=== PATIENT | male | born 1960 | race Hispanic/Latino ===

== ENCOUNTER 2018-06-23 06:23 | Day surgery (SDC) | payer OTHER, MEDICAID ==
[2018-06-22 15:12] VITALS: BP 133/75
[2018-06-22 15:17] LABS: BASOPHILS % (AUTO) 0.9 % (0.0-5.0); EOSINOPHILS % (AUTO) 1.9 % (0.0-8.0); HEMATOCRIT 41.9 % (42-54); LYMPHOCYTES % (AUTO) 21.1 % (21.0-51.0); MEAN CORPUSCULAR HEMOGLOBIN 33.2 pg (27.0-33.0); MONOCYTES % (AUTO) 5.6 % (3.0-13.0); NEUTROPHILS % (AUTO) 70.5 % (40.0-77.0); NUCLEATED RED BLOOD CELLS 0.1 % (0.0-0.19); PLATELET COUNT (AUTO) 66 K/uL (130-400); RED BLOOD CELL COUNT(AUTO) 4.41 MIL/uL (4.50-6.20); RED CELL DISTRIBUTION WIDTH 15.7 % (11.0-15.5); WHITE BLOOD COUNT (AUTO) 4.3 K/uL (4.8-10.8)
[2018-06-22 15:26] LABS: CREATININE 0.9 mg/dL (0.5-1.5); POTASSIUM 4.3 mmol/L (3.5-5.1)
[2018-06-22 15:43] LABS: PLATELET MORPHOLOGY COMMENT DECREASED
[2018-06-22] MEDS: CEFAZOLIN SODIUM 1 GM VIAL IVP SCH (16:00)
[2018-06-23] VITALS (13 sets, daily range): BP systolic 88–154; BP diastolic 46–86
[~2018-06-23] VITALS: Ht 181.6 cm; Wt 97.4 kg
[~2018-06-23 06:23] MED LIST: HYDR-4068 PO; LACT10SO9 PO; LISI40TA4 PO; METF-444 PO; POTA20TA82 PO; PRAV10TA39 PO; SPIR25TA PO
[2018-06-23] MEDS ORDERED: SODIUM CHLORIDE 0.9% 1000ML 1,000 ML IV ONE (06:45)
[2018-06-23] MEDS ORDERED: LIDOCAINE PF 2% 5ML ABBOJECT ONE (07:46)
[2018-06-23] MEDS ORDERED: ONDANSETRON HCL 4 MG/2 ML VIAL ONE (07:46)
[2018-06-23] MEDS ORDERED: DEXAMETHASONE SOD PHOSPHATE 10MG/ML 1ML VIAL ONE (07:46)
[2018-06-23] MEDS ORDERED: FENTANYL CITRATE PF 50 MCG/1 ML 2ML VIAL ONE ×3 (07:47→08:52)
[2018-06-23] MEDS ORDERED: PROPOFOL 10 MG/ML 20ML VIAL IV ONE (07:47)
[2018-06-23] MEDS ORDERED: MIDAZOLAM HCL 1 MG/ML 2ML VIAL ONE (07:47)
[2018-06-23] MEDS: CEFAZOLIN SODIUM 1 GM VIAL IVP SCH (08:30)
[2018-06-23] MEDS ORDERED: CEPH500B PO (09:24)
[2018-06-23] MEDS ORDERED: HYDR-4453 PO (09:24)
[2018-06-23] MEDS ORDERED: KETOROLAC TROMETHAMINE 30MG/ML ONE (09:57)
[2018-06-23] MEDS ORDERED: HYDROCODONE/ACETAMINOPHEN 10/325 MG TAB PO SCH (11:06)
== END 2018-06-23 11:35 | disposition home or self-care (01) ==
LOC: DAH 06:23
PROVIDERS: ATTEND Orthopaedic Surgery
DX: M25.562 Pain in left knee (principal); G89.29 Other chronic pain; M67.52 Plica syndrome, left knee; E11.9 Type 2 diabetes mellitus without complications; I10 Essential (primary) hypertension; K72.90 Hepatic failure, unspecified without coma; B18.2 Chronic viral hepatitis C; K74.60 Unspecified cirrhosis of liver; Z86.73 Personal history of transient ischemic attack (TIA), and cerebral infarction without residual deficits; E78.5 Hyperlipidemia, unspecified; D64.9 Anemia, unspecified; Z98.890 Other specified postprocedural states; Z79.899 Other long term (current) drug therapy; Z83.3 Family history of diabetes mellitus; Z82.49 Family history of ischemic heart disease and other diseases of the circulatory system; D64.89 Other specified anemias
CPT/HCPCS: 29870; 36415; 80048; 82948 ×2; 85025; A4606; A4649 ×2; A4930; A6223; J0690; J1100; J1885; J2001; J2250; J2405; J2704; J3010 ×3; J7030 ×2; A4218

== ENCOUNTER → 2019-04-25 | Outpatient (CLI) | payer MEDICAID ==
[~2019-04-25] MED LIST changes: +CEPH500B PO; -HYDR-4068 PO; +HYDR-4453 PO
== END | disposition home or self-care (01) ==
LOC: RAH 08:24
PROVIDERS: ATTEND Internal Medicine Gastroenterology
DX: K74.60 Unspecified cirrhosis of liver (principal); R16.1 Splenomegaly, not elsewhere classified; Z90.49 Acquired absence of other specified parts of digestive tract
CPT/HCPCS: 76700; 93975

== ENCOUNTER 2019-10-18 16:05 | Observation (INO) | payer MEDICAID ==
[~2019-10-18] VITALS: Ht 180.3 cm; Wt 97.5 kg
[2019-10-18 16:50] VITALS: BP 143/90
[2019-10-18] MEDS ORDERED: 1/2 NORMAL SALINE 1,000 ML IV SCH (17:15)
[2019-10-18] MEDS ORDERED: ALBUTEROL SULFATE 0.083% 2.5 MG/3 ML INH IH PRN (17:30)
[2019-10-18] MEDS ORDERED: GUAIFENESIN-DM 200/20 MG 10 ML PO PRN (17:30)
[2019-10-18] MEDS ORDERED: GLIP5TAB11 PO (17:30)
[2019-10-18] MEDS ORDERED: OMEP40CA13 PO (17:30)
[2019-10-18] MEDS ORDERED: GABA-531 PO (17:30)
[2019-10-18] MEDS ORDERED: ACETAMINOPHEN 325 MG TAB PO PRN (17:30)
[2019-10-18] MEDS ORDERED: POTA25TA35 PO (17:30)
[2019-10-18] MEDS ORDERED: ONDANSETRON HCL 4 MG/2 ML VIAL IVP PRN (17:30)
[2019-10-18] MEDS ORDERED: LACTULOSE 20 GM/30 ML UDCUP PO PRN (17:30)
[2019-10-18] MEDS ORDERED: BACL10TA PO (17:30)
[2019-10-18] MEDS: IPRATROPIUM/ALBUTEROL SULFATE 3 ML SOLUTION IH SCH ×2 (17:32→23:52)
[2019-10-18 17:50] LABS: BASOPHILS % (AUTO) 0.3 % (0.0-5.0); EOSINOPHILS % (AUTO) 0.3 % (0.0-8.0); HEMATOCRIT 33.3 % (42-54); LYMPHOCYTES % (AUTO) 11.2 % (21.0-51.0); MEAN CORPUSCULAR VOLUME 90.7 fL (79-99); MONOCYTES % (AUTO) 9.8 % (3.0-13.0); NEUTROPHILS % (AUTO) 78.1 % (40.0-77.0); PLATELET COUNT (AUTO) 54 K/uL (130-400); RED BLOOD CELL COUNT(AUTO) 3.67 MIL/uL (4.50-6.20); RED CELL DISTRIBUTION WIDTH 14.4 % (11.0-15.5); WHITE BLOOD COUNT (AUTO) 3.5 K/uL (4.8-10.8)
[2019-10-18 18:03] LABS: ALBUMIN 2.9 g/dL (3.5-5.0); BILIRUBIN,DIRECT 0.3 mg/dL (0.0-0.3); BILIRUBIN,TOTAL 0.8 mg/dL (0.2-1.0); TOTAL PROTEIN, SERUM 7.6 g/dL (6.0-8.3)
[2019-10-18] MEDS: CEFUROXIME SODIUM 1.5 GM VIAL IVP SCH (18:13)
[2019-10-18] MEDS: METHYLPREDNISOLONE SOD SUCC 125MG/2ML VIAL IVP SCH (18:13)
[2019-10-18 18:44] LABS: B-TYPE NATRIURETIC PEPTIDE 60 pg/mL (0-100)
[2019-10-18 19:00] VITALS: BP 112/82
--- NOTE | 2019-10-18 20:00 | NUR ---
dr. 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 1 as directed on med orders
[2019-10-18] MEDS ORDERED: OSELTAMIVIR PHOSPHATE 75 MG CAP PO SCH (21:00)
[2019-10-19] VITALS: BP 126/70
[2019-10-19 04:00] VITALS: BP 112/68
[2019-10-19 05:21] LABS: HEMATOCRIT 30.5 % (42-54); LYMPHOCYTES % (AUTO) 24.1 % (21.0-51.0); MEAN CORPUSCULAR HEMOGLOBIN 30.3 pg (27.0-33.0); MEAN CORPUSCULAR HGB CONC 33.4 g/dL (32.0-36.0); MEAN CORPUSCULAR VOLUME 90.5 fL (79-99); MONOCYTES % (AUTO) 7.1 % (3.0-13.0); NEUTROPHILS % (AUTO) 68.8 % (40.0-77.0); PLATELET COUNT (AUTO) 47 K/uL (130-400); RED BLOOD CELL COUNT(AUTO) 3.37 MIL/uL (4.50-6.20); RED CELL DISTRIBUTION WIDTH 14.4 % (11.0-15.5); WHITE BLOOD COUNT (AUTO) 1.4 K/uL (4.8-10.8)
[2019-10-19] MEDS: METHYLPREDNISOLONE SOD SUCC 125MG/2ML VIAL IVP SCH (05:50)
[2019-10-19] MEDS: CEFUROXIME SODIUM 1.5 GM VIAL IVP SCH (05:50)
--- NOTE | 2019-10-19 06:00 | NUR ---
DR. BABIN STATED TO RESUME PT'S HOME MEDS EXCEPT DIABETES MEDICATIONS
--- NOTE | 2019-10-19 06:00 | NUR ---
DR. BABIN AWARE OF PTS VITAL SIGNS AND OF FEVER LAST NIGHT NO NEW ORDERS REGARDING THE FEVER
[2019-10-19] MEDS ORDERED: CEFUROXIME SODIUM 1.5 GM VIAL ONE (06:01)
[2019-10-19 06:02] LABS: ALBUMIN 2.5 g/dL (3.5-5.0); BILIRUBIN,DIRECT 0.2 mg/dL (0.0-0.3); BILIRUBIN,TOTAL 0.5 mg/dL (0.2-1.0); POTASSIUM 4.2 mmol/L (3.5-5.1); TOTAL PROTEIN, SERUM 6.9 g/dL (6.0-8.3)
--- NOTE | 2019-10-19 06:10 | NUR ---
DR. AVILEZ PAGED FOR ABNORMAL SUGAR LEVEL OF 498 NO SLIDING SCALE ORDER FOR INSULIN PT ALSO ON STEROIDS IV
[2019-10-19] MEDS ORDERED: HYDROCODONE/ACETAMINOPHEN 10/325 MG TAB PO SCH (06:15)
[2019-10-19] MEDS: IPRATROPIUM/ALBUTEROL SULFATE 3 ML SOLUTION IH SCH (06:56)
[2019-10-19] MEDS ORDERED: INSULIN HUMULIN R 100 UNIT/ML 3ML SQ SCH (07:30)
[2019-10-19] MEDS ORDERED: BACLOFEN 10 MG TABLET PO SCH (08:00)
[2019-10-19] MEDS ORDERED: HUMALOG PO SS1 SQ SCH (08:00)
[2019-10-19 08:22] VITALS: BP 126/77
[2019-10-19] MEDS ORDERED: LACTULOSE 20 GM/30 ML UDCUP PO SCH (09:00)
[2019-10-19] MEDS ORDERED: GABAPENTIN 300 MG CAPSULE PO SCH (09:00)
[2019-10-19] MEDS ORDERED: POTASSIUM BICARB/CIT AC 25 MEQ TABLET.EFF PO SCH (09:00)
[2019-10-19] MEDS ORDERED: PANTOPRAZOLE SODIUM 40 MG TABLET.DR PO SCH (09:00)
[2019-10-19] MEDS ORDERED: SPIRONOLACTONE 25 MG TAB PO SCH (09:00)
[2019-10-19] MEDS ORDERED: LISINOPRIL 40 MG TABLET PO SCH (09:00)
[2019-10-19] MEDS ORDERED: ATORVASTATIN CALCIUM 10 MG TABLET PO SCH (09:00)
--- NOTE | 2019-10-19 10:13 | NUR ---
Pt was evaluated by Dr. Root and order to be Discharge home. While doing the paper work for pt to be DC, pts call multiple times requesting the pt not to be DC because "he is not good". 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 continues to call non stop to house sup, supervisors and nurses until the point the pt call her and tell her to stop calling and that he is going home as ordered.
--- NOTE | 2019-10-19 10:15 | NUR ---
Per Dr. Root order pt was DC and pt verbalized that he will follow up and visit Dr. Root as soon as posible.
--- NOTE | 2019-10-19 10:51 | NUR ---
0930 Phone call received from Kam Armijo claims her is in room 427 and is being discharge today which she is not in agreement do to his white count 1.4 and he has a lump in his chest and needs a consult with drywall taper helper claims she is still legally to him and they have kids she just want to do what is right for him and if some thing happens to him will follow up with [facility] [place]. Inform Dr Root did come personally and assess pt prior discharge and the only thing i can do is to inform Dr Root regarding her concerns or she call him personally she states she has left messages for Dr Root but he has not answer her back. Primary nurse ask pt for verbal consent to call Dr Root to call for an update response was yes. [address] Root gave him spouse concerns states pt is at his office and he will take care of his pt. [address] to Kam Armijo inform her spoke to Dr Root gave him her concerns and as per Doctor Root pt is at his office at present time states thank you . Christian hernandez
== END 2019-10-19 10:20 | disposition home or self-care (01) ==
LOC: EDH 16:05 → EDHIP 16:06 → EEVIPCON 16:06 → 4DH 16:51
PROVIDERS: ADMIT Internal Medicine; ATTEND Internal Medicine
DX: A41.9 Sepsis, unspecified organism (principal); J10.1 Influenza due to other identified influenza virus with other respiratory manifestations; J44.1 Chronic obstructive pulmonary disease with (acute) exacerbation; E86.0 Dehydration; K74.60 Unspecified cirrhosis of liver; E78.5 Hyperlipidemia, unspecified; E11.9 Type 2 diabetes mellitus without complications; D61.818 Other pancytopenia; Z86.73 Personal history of transient ischemic attack (TIA), and cerebral infarction without residual deficits
CPT/HCPCS: 36415 ×2; 71045; 80048; 80076 ×2; 82948 ×2; 83880; 85025 ×2; 85060; 87804 ×2; 94640 ×3; 94664; 96372; 96374; 96375; 96376 ×2; 99284; G0378 ×9; J0697 ×2; J2930 ×2

== ENCOUNTER → 2019-10-23 | Outpatient (CLI) | payer MEDICAID ==
[~2019-10-23] MED LIST changes: +BACL10TA PO; -CEPH500B PO; +GABA-531 PO; +GLIP5TAB11 PO; +OMEP40CA13 PO; -POTA20TA82 PO; +POTA25TA35 PO
== END | disposition home or self-care (01) ==
LOC: RAH 09:03
PROVIDERS: ATTEND Internal Medicine Gastroenterology
DX: R16.1 Splenomegaly, not elsewhere classified (principal); K74.60 Unspecified cirrhosis of liver; Z90.49 Acquired absence of other specified parts of digestive tract
CPT/HCPCS: 76700; 93975

== ENCOUNTER → 2019-12-13 | Outpatient (CLI) | payer MEDICAID ==
[~2019-12-13] MED LIST changes: +FENT-77 TD; +HYDR-4068 PO; +MONT10TA26 PO
== END | disposition home or self-care (01) ==
LOC: RAH 08:38
PROVIDERS: ATTEND Internal Medicine Hematology & Oncology
DX: N50.3 Cyst of epididymis (principal); N60.01 Solitary cyst of right breast; I86.1 Scrotal varices; N62 Hypertrophy of breast; D64.9 Anemia, unspecified; D72.819 Decreased white blood cell count, unspecified; D69.49 Other primary thrombocytopenia
CPT/HCPCS: 76641; 76870; 77066

== ENCOUNTER 2019-12-19 15:10 | Observation (INO) | payer MEDICAID ==
[~2019-12-19] VITALS: Ht 167.6 cm; Wt 86.0 kg
[~2019-12-19 15:10] MED LIST changes: -FENT-77 TD; -HYDR-4068 PO; -MONT10TA26 PO
[2019-12-19] MEDS ORDERED: GLUCAGON 1MG KIT 1 MG ML IM PRN (15:39)
[2019-12-19] MEDS ORDERED: DEXTROSE 50%-WATER 50 ML DISP.SYRIN IV PRN (15:39)
[2019-12-19] MEDS ORDERED: ONDANSETRON HCL 4 MG/2 ML VIAL IVP PRN (15:45)
[2019-12-19] MEDS ORDERED: POTASSIUM CHLORIDE 20 MEQ ERTAB PO PRN (15:45)
[2019-12-19] MEDS ORDERED: GUAIFENESIN-DM 200/20 MG 10 ML PO PRN (15:45)
[2019-12-19] MEDS ORDERED: POTASSIUM CHLORIDE 20MEQ/100ML 100 ML IV PRN (15:45)
[2019-12-19] MEDS ORDERED: LIDOCAINE HCL-MPF 1% 2ML VIAL IJ PRN (15:45)
[2019-12-19] MEDS ORDERED: POTASSIUM CHLORIDE 10% ELIXIR 20 MEQ/15 ML UDCUP PO PRN (15:45)
[2019-12-19] MEDS: 1/2 NORMAL SALINE 1,000 ML IV SCH (15:45)
[2019-12-19] MEDS: INSULIN R PO SS1 SQ SCH ×2 (16:30→21:00)
[2019-12-19] MEDS ORDERED: CEFTRIAXONE SODIUM 1 GM ONE (16:38)
[2019-12-19] MEDS ORDERED: 1/2 NORMAL SALINE 1,000 ML IV ONE (16:39)
[2019-12-19 16:53] LABS: BASOPHILS % (AUTO) 0.4 % (0.0-5.0); EOSINOPHILS % (AUTO) 0.4 % (0.0-8.0); HEMATOCRIT 28.7 % (42-54); LYMPHOCYTES % (AUTO) 16.9 % (21.0-51.0); MEAN CORPUSCULAR HEMOGLOBIN 28.1 pg (27.0-33.0); MEAN CORPUSCULAR HGB CONC 32.4 g/dL (32.0-36.0); MEAN CORPUSCULAR VOLUME 86.7 fL (79-99); MONOCYTES % (AUTO) 12.4 % (3.0-13.0); NEUTROPHILS % (AUTO) 69.5 % (40.0-77.0); PLATELET COUNT (AUTO) 26 K/uL (130-400); RED BLOOD CELL COUNT(AUTO) 3.31 MIL/uL (4.50-6.20); RED CELL DISTRIBUTION WIDTH 14.8 % (11.0-15.5); WHITE BLOOD COUNT (AUTO) 2.3 K/uL (4.8-10.8)
[2019-12-19 17:20] LABS: CREATININE 0.8 mg/dL (0.5-1.5); POTASSIUM 3.7 mmol/L (3.5-5.1)
[2019-12-19 17:26] LABS: ALBUMIN 2.6 g/dL (3.5-5.0); BILIRUBIN,DIRECT 0.4 mg/dL (0.0-0.3); BILIRUBIN,TOTAL 1.1 mg/dL (0.2-1.0); TOTAL PROTEIN, SERUM 6.2 g/dL (6.0-8.3)
[2019-12-19 17:41] LABS: LYMPHOCYTES % (MANUAL) 16 % (22-44); MONOCYTES % (MANUAL) 5 % (2-9); SEGMENTED NEUTROPHILS % 79 % (40-70)
[2019-12-19 17:42] LABS: MAN.DIFF COMMENT-IMPRESSION MANUAL DIFFERENTIAL
[2019-12-19 20:30] VITALS: BP 145/80
[2019-12-19] MEDS ORDERED: SPIR25TA PO (22:00)
[2019-12-19] MEDS ORDERED: FENT-77 TD (22:00)
[2019-12-19] MEDS ORDERED: MONT10TA26 PO (22:00)
[2019-12-19] MEDS ORDERED: FENTANYL 100 MCG/HR PATCH TD SCH (22:00)
[2019-12-19] MEDS ORDERED: HYDROCODONE/ACETAMINOPHEN 10/325 MG TAB PO PRN (22:00)
[2019-12-19] MEDS ORDERED: HYDR-4068 PO (22:00)
[2019-12-19] MEDS: SPIRONOLACTONE 25 MG TAB PO SCH (23:00)
[2019-12-19] MEDS: GABAPENTIN 300 MG CAPSULE PO SCH (23:00)
[2019-12-20] VITALS: BP 122/63
[2019-12-20 04:00] VITALS: BP 133/72
[2019-12-20] MEDS: 1/2 NORMAL SALINE 1,000 ML IV SCH (04:25)
[2019-12-20] MEDS: INSULIN R PO SS1 SQ SCH ×2 (07:30→11:30)
[2019-12-20] MEDS: LACTULOSE 20 GM/30 ML UDCUP PO SCH ×2 (08:47→13:56)
[2019-12-20] MEDS: SPIRONOLACTONE 25 MG TAB PO SCH (08:49)
[2019-12-20 08:50] VITALS: BP 157/89
[2019-12-20] MEDS: GABAPENTIN 300 MG CAPSULE PO SCH (08:50)
[2019-12-20] MEDS ORDERED: POTASSIUM BICARB/CIT AC 25 MEQ TABLET.EFF PO SCH (09:00)
[2019-12-20] MEDS ORDERED: GABAPENTIN 300 MG CAPSULE PO SCH (09:00)
[2019-12-20] MEDS ORDERED: GLIPIZIDE 5 MG TABLET PO SCH (09:00)
[2019-12-20] MEDS ORDERED: CEFTRIAXONE SODIUM 1 GM IVP SCH (09:00)
[2019-12-20] MEDS ORDERED: METFORMIN HCL 500 MG TABLET PO SCH (09:00)
[2019-12-20] MEDS ORDERED: SPIRONOLACTONE 25 MG TAB PO SCH (09:00)
[2019-12-20] MEDS ORDERED: LISINOPRIL 40 MG TABLET PO SCH (09:00)
[2019-12-20] MEDS ORDERED: PANTOPRAZOLE SODIUM 40 MG TABLET.DR PO SCH (09:00)
[2019-12-20 11:55] VITALS: BP 137/78
--- NOTE | 2019-12-20 13:19 | NUR ---
INITIAL SW spoke with patient. Patient states he lives alone. Emergency contact is his ex spouse, Zofia Humphrey, [phone]. No home health. PHC with [facility] X 18 hours a week. DME: cane, walker with seat, shower chair, glucometer (no insulin). Patient states he needs help completing ADL's but is able to drive. PCP is Dr. Doroteo Root. Pharmacy is [facility] located in [place]. DCP is home. Addendum: 12/20/19 at 1323 by SMILEY BLANCO SS Amended: Links added.
--- NOTE | 2019-12-20 13:50 | NUR ---
CLARIFIED DR. AVILEZ'S FOLLOW UP ORDER: FOLLOW UP IN THE OFFICE TOMORROW.
[2019-12-20] MEDS ORDERED: ATORVASTATIN CALCIUM 10 MG TABLET PO SCH (21:00)
[2019-12-20] MEDS ORDERED: MONTELUKAST SODIUM 10 MG TAB PO SCH (21:00)
== END 2019-12-20 14:40 | disposition home or self-care (01) ==
LOC: EDH 15:10 → EDHIP 15:11 → 4DH 19:50
PROVIDERS: ADMIT Internal Medicine; ATTEND Internal Medicine
DX: A41.9 Sepsis, unspecified organism (principal); D61.818 Other pancytopenia; K74.60 Unspecified cirrhosis of liver; E11.9 Type 2 diabetes mellitus without complications; E78.5 Hyperlipidemia, unspecified; I10 Essential (primary) hypertension; J44.9 Chronic obstructive pulmonary disease, unspecified
CPT/HCPCS: 36415; 80048; 80076; 82140; 82948 ×2; 85025; 87040 ×2; 96374; 99284; G0378 ×11; J0696 ×2

== ENCOUNTER → 2021-03-16 | Outpatient (CLI) | payer MEDICAID ==
[~2021-03-16] MED LIST changes: -BACL10TA PO; +FENT-77 TD; +HYDR-4068 PO; -HYDR-4453 PO; -LISI40TA4 PO; +LISI40TA9 PO; +MONT10TA32 PO; -OMEP40CA13 PO; +OMEP40CA21 PO
== END | disposition home or self-care (01) ==
LOC: RAH 09:40
PROVIDERS: ATTEND Internal Medicine Gastroenterology
DX: K76.89 Other specified diseases of liver (principal); I86.8 Varicose veins of other specified sites; R16.1 Splenomegaly, not elsewhere classified; Z90.49 Acquired absence of other specified parts of digestive tract
CPT/HCPCS: 76700; 93975

== ENCOUNTER 2023-03-04 20:11 | Inpatient (IN) | payer MEDICAID ==
[~2023-03-04] VITALS: Ht 175.3 cm; Wt 84.4 kg
[~2023-03-04 20:11] MED LIST changes: +DULO30CA52 PO; -FENT-77 TD; +FENTANYL TD; -GABA-531 PO; +GABA300C PO; -GLIP5TAB11 PO; -LACT10SO9 PO; -METF-444 PO; +METF-446 PO; +MONT-39 PO; -MONT10TA32 PO; -POTA25TA35 PO; -SPIR25TA PO; +SPIR25TA6 PO; +TIZA-211 PO
[2023-03-04] MEDS ORDERED: 0.9%NACL 1000ML 1,000 ML IV SCH ×2 (21:00)
[2023-03-04 21:17] LABS: BASOPHILS % (AUTO) 0.5 % (0.0-5.0); EOSINOPHILS % (AUTO) 1.6 % (0.0-8.0); HEMATOCRIT 21.6 % (42-54); LYMPHOCYTES % (AUTO) 18.5 % (21.0-51.0); MEAN CORPUSCULAR HGB CONC 30.1 g/dL (32.0-36.0); MEAN CORPUSCULAR VOLUME 83.1 fL (79-99); MONOCYTES % (AUTO) 7.5 % (3.0-13.0); NEUTROPHILS % (AUTO) 71.6 % (40.0-77.0); PLATELET COUNT (AUTO) 71 K/uL (130-400); RED CELL DISTRIBUTION WIDTH 18.4 % (11.0-15.5); WHITE BLOOD COUNT (AUTO) 6.2 K/uL (4.8-10.8)
[2023-03-04 21:19] LABS: CARBON DIOXIDE 26 mmol/L (21-32); CHLORIDE 106 mmol/L (101-111); CREATININE 0.8 mg/dL (0.5-1.5); GLOMERULAR FILTR. RATE CALC 99 mL/min (>90); GLUCOSE,RANDOM 271 mg/dL (70-105); POTASSIUM 3.2 mmol/L (3.5-5.1); SODIUM SERUM 138 mmol/L (136-145); UREA NITROGEN, BLOOD 17 mg/dL (7-18)
[2023-03-04 21:29] LABS: ALANINE AMINOTRANSFERASE 23 U/L (12-78); ALBUMIN 2.1 g/dL (3.5-5.0); AMMONIA 85 umol/L (11-32); ASPARTATE AMINOTRANSFERASE 22 U/L (10-37); CREATINE KINASE, TOTAL 80 U/L (21-232); TOTAL PROTEIN, SERUM 6.6 g/dL (6.0-8.3)
[2023-03-04] MEDS ORDERED: OCTREOTIDE ACETATE 100 MCG/ML AMP IVP SCH (21:30)
[2023-03-04] MEDS ORDERED: OCTREOTIDE ACETATE 1,000 MCG in DEXTROSE 5%-WATER 195 ML IV SCH (21:30)
[2023-03-04] MEDS ORDERED: OCTREOTIDE 1,250 MCG /NS 250ML (DRIP) IV SCH ×2 (22:00)
[2023-03-04] MEDS ORDERED: OCTREOTIDE ACETATE 200 MCG/ML 5 ML VIAL ONE (22:46)
[2023-03-04] MEDS: PANTOPRAZOLE 40 MG/VIAL IVP SCH ×2 (22:58→23:39)
[2023-03-05] MEDS ORDERED: ONDANSETRON 4MG INJ IV PRN
[2023-03-05] MEDS: MORPHINE 2 MG SYG IVP PRN ×4 (00:23→18:12)
[2023-03-05] MEDS ORDERED: POTASSIUM CHLORIDE 10MEQ/100ML 100 ML IV PRN (01:00)
[2023-03-05] MEDS ORDERED: MAGNESIUM 2GM PREMIX 50ML 50 ML IV PRN (01:00)
[2023-03-05 04:58] LABS: AMPHET/METH SCREEN,URINE POSITIVE (NEGATIVE); BARBITURATE SCREEN, URINE NEGATIVE (NEGATIVE); BENZODIAZEPINES SCREEN,URINE NEGATIVE (NEGATIVE); CANNABINOID SCREEN,URINE NEGATIVE (NEGATIVE); COCAINE SCREEN,URINE NEGATIVE (NEGATIVE); OPIATE SCREEN,URINE POSITIVE (NEGATIVE); PHENCYCLIDINE SCREEN,URINE NEGATIVE (NEGATIVE)
[2023-03-05 05:29] LABS: HEMATOCRIT 22.8 % (42-54)
[2023-03-05 05:43] LABS: CREATININE 0.5 mg/dL (0.5-1.5); POTASSIUM 3.3 mmol/L (3.5-5.1)
[2023-03-05] MEDS: INSULIN HUMULIN R 100 UNIT/ML 3ML SQ SCH ×4 (06:00→17:08)
[2023-03-05] MEDS: LACTULOSE 20 GM/30 ML UDCUP PO SCH ×2 (08:10→20:22)
[2023-03-05] MEDS: PANTOPRAZOLE 40 MG/VIAL IVP SCH ×2 (08:10→20:22)
[2023-03-05 10:30] LABS: INR 1.15 (0.85-1.15); PROTHROMBIN TIME 12.4 SEC (9.6-11.6)
[2023-03-05 16:05] VITALS: BP 146/76
[2023-03-05 19:37] LABS: HEMATOCRIT 24.3 % (42-54)
[2023-03-05 19:43] VITALS: BP 146/78
[2023-03-06] VITALS (18 sets, daily range): BP systolic 116–159; BP diastolic 48–81
[2023-03-06] MEDS: INSULIN HUMULIN R 100 UNIT/ML 3ML SQ SCH ×3 (00:29→11:41)
[2023-03-06] MEDS: MORPHINE 2 MG SYG IVP PRN ×3 (01:23→12:21)
[2023-03-06 05:44] LABS: HEMATOCRIT 26.9 % (42-54); MEAN CORPUSCULAR HEMOGLOBIN 25.5 pg (27.0-33.0); MEAN CORPUSCULAR HGB CONC 30.9 g/dL (32.0-36.0); MEAN CORPUSCULAR VOLUME 82.8 fL (79-99); RED BLOOD CELL COUNT(AUTO) 3.25 MIL/uL (4.50-6.20); RED CELL DISTRIBUTION WIDTH 17.6 % (11.0-15.5); WHITE BLOOD COUNT (AUTO) 3.5 K/uL (4.8-10.8)
[2023-03-06 06:04] LABS: ALBUMIN 2.1 g/dL (3.5-5.0); CREATININE 0.6 mg/dL (0.5-1.5); POTASSIUM 3.3 mmol/L (3.5-5.1)
[2023-03-06] MEDS: PANTOPRAZOLE 40 MG/VIAL IVP SCH (08:59)
[2023-03-06] MEDS ORDERED: LIDOCAINE HCL-MPF 2% 10ML AMP IJ ONE (10:44)
[2023-03-06] MEDS ORDERED: PROPOFOL 10 MG/ML 20ML VIAL IV ONE ×2 (10:44→10:52)
== END 2023-03-06 14:20 | disposition left against medical advice (07) ==
LOC: EDH 20:11 → EDHIP 20:12 → UNDOADMIN 23:32 → 2DH 03-05 15:57
PROVIDERS: ADMIT Hospitalist; ATTEND Hospitalist
PROC: 30233N1 Transfusion of Nonautologous Red Blood Cells into Peripheral Vein, Percutaneous Approach (ICD-10-PCS; 2023-03-05)
PROC: 06L38CZ Occlusion of Esophageal Vein with Extraluminal Device, Via Natural or Artificial Opening Endoscopic (ICD-10-PCS; principal; 2023-03-06)
DX: K74.60 Unspecified cirrhosis of liver (principal); I85.11 Secondary esophageal varices with bleeding; D69.6 Thrombocytopenia, unspecified; E87.20 Acidosis, unspecified; K76.82 Hepatic encephalopathy; R18.8 Other ascites; G30.9 Alzheimer's disease, unspecified; F02.80 Dementia in other diseases classified elsewhere, unspecified severity, without behavioral disturbance, psychotic disturbance, mood disturbance, and anxiety; D64.9 Anemia, unspecified; D73.1 Hypersplenism; E11.9 Type 2 diabetes mellitus without complications; E78.5 Hyperlipidemia, unspecified; E87.6 Hypokalemia; I10 Essential (primary) hypertension; Z86.73 Personal history of transient ischemic attack (TIA), and cerebral infarction without residual deficits; Z79.899 Other long term (current) drug therapy
CPT/HCPCS: 36415; 43244; 70450; 71045; 72125; 80048; 80053; 80305; 82140; 82550; 82948; 83605; 83735; 84484; 85014; 85018; 85025; 85027; 85610; 86850; 86900; 86901; 86923; 87040; 93005; 96365; 96366; 96375; 99291; A4606; C9113; G0378; J1815; J2270; J2354; J2704; J3475; J3490; J7030; J7050; P9016